=== PATIENT | female | born 1990 ===

== ENCOUNTER → 2025-06-21 | Outpatient (REF) | payer OTHER ==
[2025-06-21 13:15] LABS: CREATININE, URINE 87.7 MG/DL
[2025-06-21 13:16] LABS: MALB URINE SIEMENS 23.0 MG/L; MAU/CREAT RATIO 26.2 MCG/MG (0.0-30.0)
[2025-06-21 15:40] LABS: ALT/SGPT 20 U/L (7.0-40); AST/SGOT 17 U/L (<34); CALCIUM LEVEL 9.6 MG/DL (8.5-10.1); CARBON DIOXIDE LEVEL 24 MMOL/L (20-31); CHLORIDE LEVEL 102 MMOL/L (98-107); CHOLESTEROL LEVEL 299 MG/DL (<200); CHOLESTEROL RISK RATIO 8.35 (<5); CREATININE FOR GFR 0.63 MG/DL (0.55-1.30); GLOMERULAR FILTRATION RATE > 90.0 (>60); NON-HDL-C 263.2 MG/DL; POTASSIUM SERUM 4.3 MMOL/L (3.5-5.1); SODIUM LEVEL 135 MMOL/L (136-145); TRIGLYCERIDES LEVEL 641 MG/DL (<150)
[2025-06-21 15:41] LABS: TOTAL 25(OH) VITAMIN D 24.4 NG/ML (20.0-100.0)
[2025-06-21 15:59] LABS: ESTIMATED AVERAGE GLUCOSE 163.0 MG/DL (60-110)
== END ==
LOC: M LAB REF 12:11
PROVIDERS: ATTEND Student in an Organized Health Care Education/Training Program
DX: E10.9 Type 1 diabetes mellitus without complications (principal); Z68.31 Body mass index [BMI] 31.0-31.9, adult; E55.9 Vitamin D deficiency, unspecified